=== PATIENT | female | born 1965 | race Asian ===

== ENCOUNTER → 2022-10-25 | Outpatient (CLI) | payer OTHER | LOC: CT 09:00 | PROVIDERS: ATTEND Nurse Practitioner Family | DX: E78.2 Mixed hyperlipidemia (principal) | CPT/HCPCS: 75571 ==

== ENCOUNTER 2024-07-27 21:03 | Emergency (ER) | payer OTHER ==
[~2024-07-27] VITALS: Ht 167.6 cm; Wt 58.1 kg
[2024-07-27 22:06] VITALS: PULSE 77; RESP 20; TEMP 98.3
[2024-07-27 23:49] VITALS: BP 143/93; PULSE 86; RESP 16; TEMP 98; O2SAT 99
== END 2024-07-27 23:52 | disposition home or self-care (01) ==
LOC: ER 21:11
DX: M79.605 Pain in left leg (principal); R60.9 Edema, unspecified; E03.9 Hypothyroidism, unspecified; N80.9 Endometriosis, unspecified
CPT/HCPCS: 93971; 99282